=== PATIENT | female | born 1965 | race Caucasian/White ===

== ENCOUNTER 2018-03-16 12:46 | Day surgery (SDC) | payer MEDICARE, OTHER ==
[~2018-03-16] VITALS: Ht 165.1 cm; Wt 64.5 kg
[2018-03-16] MEDS ORDERED: LIDOcaine Viscous 15ml cup ONE (13:12)
[2018-03-16] MEDS ORDERED: MIDAZolam 5mg/5ml vial ONE (13:12)
[2018-03-16] MEDS ORDERED: fentaNYL/PF 50MCG/1 ML 2ML syringe ONE (13:12)
[2018-03-16] MEDS ORDERED: INSU100C10 SQ (13:17)
[2018-03-16] MEDS ORDERED: DULO60CA45 PO (13:17)
[2018-03-16] MEDS ORDERED: FAMC500T3 (13:19)
[2018-03-16] MEDS ORDERED: EZET10TA14 PO (13:20)
[2018-03-16] MEDS ORDERED: IVAB5TAB (13:20)
[2018-03-16] MEDS ORDERED: CLOP75TA15 PO (13:21)
[2018-03-16 13:22] VITALS: BP 159/74
[2018-03-16 14:16] VITALS: BP 128/73
[2018-03-16 14:26] VITALS: BP 123/66
[2018-03-16 14:36] VITALS: BP 127/67
[2018-03-16 14:46] VITALS: BP 117/67
== END 2018-03-16 14:50 | disposition home or self-care (01) ==
LOC: GI LAB 12:46
PROVIDERS: ATTEND Internal Medicine Gastroenterology
DX: K29.50 Unspecified chronic gastritis without bleeding (principal); K22.10 Ulcer of esophagus without bleeding; I25.2 Old myocardial infarction; E10.9 Type 1 diabetes mellitus without complications; I50.9 Heart failure, unspecified; Z86.19 Personal history of other infectious and parasitic diseases; Z79.4 Long term (current) use of insulin; Z95.1 Presence of aortocoronary bypass graft; Z86.74 Personal history of sudden cardiac arrest; Z95.5 Presence of coronary angioplasty implant and graft; Z90.89 Acquired absence of other organs; Z90.49 Acquired absence of other specified parts of digestive tract; Z79.899 Other long term (current) drug therapy
CPT/HCPCS: 43239; 82948; G0500; J2250; J3010; J7030; 88305; 88312; 88342; A4620